=== PATIENT | male | born 1965 | race Caucasian/White ===

== ENCOUNTER 2020-12-03 23:21 | Emergency (ER) | payer OTHER ==
[~2020-12-03] VITALS: Ht 180.3 cm; Wt 140.2 kg
[2020-12-04 02:15] LABS: BASO # 0.1 10*3/uL (0.0-0.1); BASO % 0.4 % (0.0-1.0); EOS # 0.2 10*3/uL (0.0-0.4); EOS % 1.2 % (1.0-4.0); LYMPH # 1.7 10*3/uL (1.3-4.4); LYMPH % 11.9 % (27.0-41.0); MEAN CELL VOLUME 88.1 fl (80.0-94.0); MEAN CORPUSCULAR HGB 30.6 pg (27.0-31.0); MEAN CORPUSCULAR HGB CONC 34.7 g/dl (33.0-37.0); MEAN PLATELET VOLUME 10.8 fl (9.6-12.3); MONO # 1.4 10*3/uL (0.1-1.0); MONO % 9.7 % (3.0-9.0); NEUT # 10.8 10*3/uL (2.3-7.9); NEUT % 76.4 % (47.0-73.0); PLATELET COUNT AUTOMATED 247 10*3/uL (130-400); RED BLOOD COUNT 5.56 10*6/uL (4.50-5.90); RED CELL DISTRI WIDTH 13.1 % (0-14.5); WHITE BLOOD COUNT 14.2 10*3/uL (4.8-10.8)
[2020-12-04 02:32] LABS: ALBUMIN 3.5 gm/dl (3.1-4.5); ALKALINE PHOSPHATASE 95 U/L (45-117); BUN 14 mg/dl (7-24); CHLORIDE 106 mmol/L (98-107); CREATININE 1.17 mg/dL (0.70-1.30); LIPASE 72 U/L (73-393); POTASSIUM 3.8 mmol/L (3.5-5.1); SGOT/AST 18 IU/L (3-35); SGPT/ALT 33 U/L (12-78); SODIUM 137 mmol/L (136-145); TOTAL PROTEIN 7.4 gm/dL (6.4-8.2)
[2020-12-04 03:14] LABS: BILIRUBIN Negative (Negative); BLOOD Negative (Negative); CLARITY Clear (Clear); COLOR Yellow (Yellow); GLUCOSE Negative (Negative); KETONE Negative (Negative); LEUKO ESTERASE 1+ (Negative); NITRITE Negative (Negative); PH 5.5 (4.5-8.0); SPECIFIC GRAVITY 1.015 (1.001-1.030); UROBILINOGEN 0.2 E.U./dl (0.0-1.0)
[2020-12-04] MEDS ORDERED: HYDROCODONE-AC1 EAC1 PO (04:54)
[2020-12-04] MEDS ORDERED: CIPRO500 MG PO (04:54)
[2020-12-04] MEDS ORDERED: COLACE100 MG PO (04:54)
[2020-12-04] MEDS ORDERED: METRONIDAZOLE500 M1 PO (04:54)
== END 2020-12-04 05:34 | disposition home or self-care (01) ==
LOC: ED 23:21
PROVIDERS: Emergency Medicine
DX: K57.32 Diverticulitis of large intestine without perforation or abscess without bleeding (principal); Z88.1 Allergy status to other antibiotic agents

== ENCOUNTER 2022-01-26 09:32 | Emergency (ER) | payer OTHER ==
[~2022-01-26] VITALS: Wt 136.5 kg
[~2022-01-26 09:32] MED LIST: CIPRO500 MG PO; COLACE100 MG PO; HYDROCODONE-AC1 EAC1 PO; METRONIDAZOLE500 M1 PO
[2022-01-26 10:26] LABS: BASO # 0.1 10*3/uL (0.0-0.1); BASO % 0.6 % (0.0-1.0); EOS # 0.3 10*3/uL (0.0-0.4); EOS % 1.8 % (1.0-4.0); LYMPH # 2.2 10*3/uL (1.3-4.4); LYMPH % 15.6 % (27.0-41.0); MEAN CELL VOLUME 88.1 fl (80.0-94.0); MEAN CORPUSCULAR HGB 30.8 pg (27.0-31.0); MEAN PLATELET VOLUME 10.7 fl (9.6-12.3); MONO # 1.4 10*3/uL (0.1-1.0); NEUT # 9.9 10*3/uL (2.3-7.9); NEUT % 71.4 % (47.0-73.0); PLATELET COUNT AUTOMATED 341 10*3/uL (130-400); RED BLOOD COUNT 6.13 10*6/uL (4.50-5.90); RED CELL DISTRI WIDTH 12.8 % (0-14.5); WHITE BLOOD COUNT 13.8 10*3/uL (4.8-10.8)
[2022-01-26 10:44] LABS: ALKALINE PHOSPHATASE 110 U/L (45-117); BUN 17 mg/dl (7-24); CHLORIDE 110 mmol/L (98-107); CREATININE 1.28 mg/dL (0.70-1.30); LIPASE 118 U/L (73-393); POTASSIUM 3.8 mmol/L (3.5-5.1); SGOT/AST 21 IU/L (3-35); SGPT/ALT 30 U/L (12-78); SODIUM 139 mmol/L (136-145); TOTAL PROTEIN 8.1 gm/dL (6.4-8.2)
[2022-01-26] MEDS ORDERED: CIPRO500 MG PO (11:31)
[2022-01-26] MEDS ORDERED: METRONIDAZOLE500 M1 PO (11:31)
== END 2022-01-26 11:44 | disposition home or self-care (01) ==
LOC: ED 09:32
PROVIDERS: Family Medicine
DX: K57.32 Diverticulitis of large intestine without perforation or abscess without bleeding (principal); Z88.1 Allergy status to other antibiotic agents

== ENCOUNTER 2023-04-30 19:36 | Emergency (ER) | payer OTHER ==
[~2023-04-30] VITALS: Ht 182.8 cm; Wt 140.6 kg
== END 2023-04-30 21:57 | disposition home or self-care (01) ==
LOC: ED
DX: M25.561 Pain in right knee (principal); I10 Essential (primary) hypertension; Z88.1 Allergy status to other antibiotic agents

== ENCOUNTER 2023-10-22 10:28 | Emergency (ER) | payer OTHER ==
[~2023-10-22] VITALS: Ht 182.8 cm; Wt 140.6 kg
[2023-10-22] MEDS ORDERED: SODIUM CHLORIDE 0.9% 1,000 ML IV ONE (11:15)
[2023-10-22] MEDS ORDERED: Ondansetron Hydrochloride 4 MG/2 ML VIAL IV ONE (11:15)
[2023-10-22] MEDS ORDERED: MORPHINE Sulfate 2 MG/ML SYR IV ONE (11:15)
[2023-10-22] MEDS ORDERED: IOHEXOL 300 MG/ML 100 ML VIAL IV ONE (11:20)
[2023-10-22 11:35] LABS: BASO % 0.3 % (0.0-1.0); EOS # 0.2 10*3/uL (0.0-0.4); EOS % 1.9 % (1.0-4.0); HEMATOCRIT 51.2 % (42.0-52.0); LYMPH # 1.2 10*3/uL (1.3-4.4); LYMPH % 9.7 % (27.0-41.0); MEAN CELL VOLUME 89.4 fl (80.0-94.0); MEAN CORPUSCULAR HGB 30.9 pg (27.0-31.0); MEAN CORPUSCULAR HGB CONC 34.6 g/dl (33.0-37.0); MONO % 8.2 % (3.0-9.0); NEUT # 9.7 10*3/uL (2.3-7.9); NEUT % 79.3 % (47.0-73.0); PLATELET COUNT AUTOMATED 277 10*3/uL (130-400); RED BLOOD COUNT 5.73 10*6/uL (4.50-5.90); RED CELL DISTRI WIDTH 12.2 % (0-14.5); WHITE BLOOD COUNT 12.3 10*3/uL (4.8-10.8)
[2023-10-22 11:41] LABS: BILIRUBIN Negative (Negative); BLOOD Negative (Negative); CLARITY Clear (Clear); COLOR Yellow (Yellow); GLUCOSE Negative (Negative); KETONE Negative (Negative); LEUKO ESTERASE Trace (Negative); NITRITE Negative (Negative); PH 5.5 (4.5-8.0); SPECIFIC GRAVITY 1.015 (1.001-1.030); UROBILINOGEN 0.2 E.U./dl (0.0-1.0)
[2023-10-22 11:51] LABS: ALKALINE PHOSPHATASE 101 U/L (46-116); BUN 15 mg/dl (9-23); CHLORIDE 105 mmol/L (98-107); LIPASE 40 U/L (12-53); POTASSIUM 4.4 mmol/L (3.4-5.1); SGPT/ALT 18 U/L (5-49)
[2023-10-22 12:17] LABS: BACTERIA TRACE; MUCOUS TRACE
[2023-10-22] MEDS ORDERED: METRONIDAZOLE 500 MG TAB PO ONE (13:45)
[2023-10-22] MEDS ORDERED: Ciprofloxacin Hydrochloride 500 MG TAB PO ONE (13:45)
[2023-10-22] MEDS ORDERED: HYDROCODONE-AC1 EAC1 PO (13:49)
[2023-10-22] MEDS ORDERED: METRONIDAZOLE500 M1 PO (13:49)
[2023-10-22] MEDS ORDERED: CIPRO500 MG PO (13:49)
[2023-10-22] MEDS ORDERED: COLACE 2-IN-11 EACH PO (13:49)
== END 2023-10-22 13:57 | disposition home or self-care (01) ==
LOC: ED 10:28
PROVIDERS: Emergency Medicine
DX: K57.32 Diverticulitis of large intestine without perforation or abscess without bleeding (principal); I10 Essential (primary) hypertension; E78.5 Hyperlipidemia, unspecified; Z88.1 Allergy status to other antibiotic agents

== ENCOUNTER 2023-10-27 17:52 | Emergency (ER) | payer OTHER ==
[~2023-10-27] VITALS: Ht 182.8 cm; Wt 140.6 kg
[~2023-10-27 17:52] MED LIST changes: +COLACE 2-IN-11 EACH PO
[2023-10-27] MEDS ORDERED: Ondansetron Hydrochloride 4 MG/2 ML VIAL IV ONE (19:05)
[2023-10-27] MEDS ORDERED: SODIUM CHLORIDE 0.9% 1,000 ML IV ONE (19:05)
[2023-10-27 19:21] LABS: BASO % 0.4 % (0.0-1.0); EOS # 0.2 10*3/uL (0.0-0.4); EOS % 2.1 % (1.0-4.0); HEMATOCRIT 51.4 % (42.0-52.0); LYMPH # 1.5 10*3/uL (1.3-4.4); MEAN CELL VOLUME 88.9 fl (80.0-94.0); MEAN CORPUSCULAR HGB 30.8 pg (27.0-31.0); MEAN CORPUSCULAR HGB CONC 34.6 g/dl (33.0-37.0); MEAN PLATELET VOLUME 9.8 fl (9.6-12.3); MONO # 1.1 10*3/uL (0.1-1.0); MONO % 10.7 % (3.0-9.0); NEUT # 7.6 10*3/uL (2.3-7.9); NEUT % 72.2 % (47.0-73.0); PLATELET COUNT AUTOMATED 312 10*3/uL (130-400); RED BLOOD COUNT 5.78 10*6/uL (4.50-5.90); RED CELL DISTRI WIDTH 12.3 % (0-14.5); WHITE BLOOD COUNT 10.6 10*3/uL (4.8-10.8)
[2023-10-27 19:41] LABS: ALKALINE PHOSPHATASE 82 U/L (46-116); BUN 13 mg/dl (9-23); CHLORIDE 106 mmol/L (98-107); LIPASE 33 U/L (12-53); POTASSIUM 4.2 mmol/L (3.4-5.1); SGPT/ALT 43 U/L (5-49); TOTAL PROTEIN 7.1 gm/dL (6.0-8.0)
[2023-10-27] MEDS ORDERED: IOHEXOL 300 MG/ML 100 ML VIAL IV ONE (19:55)
[2023-10-27] MEDS ORDERED: MG-AL HYDROXIDE/SIMETICONE 30 ML UDC PO STA (21:43)
[2023-10-27] MEDS ORDERED: Dicyclomine Hydrochloride 20 MG/10 ML OSYR PO STA (21:43)
[2023-10-27] MEDS ORDERED: Lidocaine Hydrochloride 15 ML UDC PO STA (21:43)
[2023-10-27] MEDS ORDERED: PEPCID20 MG PO (21:45)
[2023-10-27] MEDS ORDERED: ONDANSETRON4 MG SL (21:45)
== END 2023-10-27 23:18 | disposition home or self-care (01) ==
LOC: ED 17:52
PROVIDERS: Nurse Practitioner Family
DX: K57.32 Diverticulitis of large intestine without perforation or abscess without bleeding (principal); K21.9 Gastro-esophageal reflux disease without esophagitis; R11.0 Nausea; I10 Essential (primary) hypertension; Z88.1 Allergy status to other antibiotic agents

== ENCOUNTER → 2024-01-09 | Day surgery (SDC) | payer OTHER ==
[~2024-01-09] VITALS: Ht 182.8 cm; Wt 140.6 kg
[~2024-01-09] MED LIST changes: +Ketamine Hydrochloride 500 MG/10 ML VIAL IV ONE; +LOSARTAN POTAS100 M1 PO; +Lactated Ringer's Solution 1,000 ML IV ONE; +Lidocaine Hydrochloride 2% 5 ML SDV IV ONE; +ONDANSETRON4 MG SL; +PEPCID20 MG PO; +PROPOFOL 200 MG/20 ML VIAL IV ONE; +ZOLPIDEM10 MG PO
[2024-01-09 07:35] VITALS: BP 129/72
[2024-01-09 08:53] VITALS: BP 128/83
[2024-01-09 09:08] VITALS: BP 122/89
[2024-01-09 09:23] VITALS: BP 146/81
== END | disposition home or self-care (01) ==
LOC: SDC 01-05 08:00
PROVIDERS: ATTEND Surgery
DX: K57.32 Diverticulitis of large intestine without perforation or abscess without bleeding (principal); K57.30 Diverticulosis of large intestine without perforation or abscess without bleeding; K64.8 Other hemorrhoids; K21.9 Gastro-esophageal reflux disease without esophagitis; I10 Essential (primary) hypertension; G47.33 Obstructive sleep apnea (adult) (pediatric); Z98.890 Other specified postprocedural states; Z79.899 Other long term (current) drug therapy; Z88.1 Allergy status to other antibiotic agents; Z79.891 Long term (current) use of opiate analgesic

== ENCOUNTER 2024-04-16 04:15 | Observation (INO) | payer OTHER ==
[~2024-04-16] VITALS: Ht 182.8 cm; Wt 154.2 kg
[~2024-04-16 04:15] MED LIST changes: -Ketamine Hydrochloride 500 MG/10 ML VIAL IV ONE; -Lactated Ringer's Solution 1,000 ML IV ONE; -Lidocaine Hydrochloride 2% 5 ML SDV IV ONE; -PROPOFOL 200 MG/20 ML VIAL IV ONE
[2024-04-16 04:28] VITALS: BP 147/74
[2024-04-16 06:05] LABS: BASO % 0.5 % (0.0-1.0); EOS # 0.4 10*3/uL (0.0-0.4); EOS % 4.8 % (1.0-4.0); MEAN CELL VOLUME 90.3 fl (80.0-94.0); MEAN CORPUSCULAR HGB 30.9 pg (27.0-31.0); MEAN CORPUSCULAR HGB CONC 34.2 g/dl (33.0-37.0); MEAN PLATELET VOLUME 10.6 fl (9.6-12.3); MONO # 0.5 10*3/uL (0.1-1.0); MONO % 7.2 % (3.0-9.0); NEUT # 4.5 10*3/uL (2.3-7.9); NEUT % 60.2 % (47.0-73.0); PLATELET COUNT AUTOMATED 294 10*3/uL (130-400); RED BLOOD COUNT 5.76 10*6/uL (4.50-5.90); RED CELL DISTRI WIDTH 13.3 % (0-14.5); WHITE BLOOD COUNT 7.5 10*3/uL (4.8-10.8)
[2024-04-16 06:07] LABS: BUN 22 mg/dl (9-23); CHLORIDE 109 mmol/L (98-107); POTASSIUM 4.1 mmol/L (3.4-5.1)
[2024-04-16] MEDS ORDERED: Vancomycin Hydrochloride 250 ML IV ONE (06:15)
[2024-04-16] MEDS ORDERED: Piperacillin Sodium/Tazobact 50 ML IV ONE (06:15)
[2024-04-16] MEDS ORDERED: Magnesium Hydroxide 30 ML UDC PO PRN (06:30)
[2024-04-16] MEDS ORDERED: TEMAZEPAM 15 MG CAP PO PRN (06:30)
[2024-04-16] MEDS ORDERED: Ondansetron Hydrochloride 4 MG/2 ML VIAL IV PRN (06:30)
[2024-04-16] MEDS ORDERED: MORPHINE Sulfate 2 MG/ML SYR IV PRN (06:30)
[2024-04-16] MEDS ORDERED: BISACODYL 10 MG SUPP R PRN (06:30)
[2024-04-16] MEDS ORDERED: Acetaminophen/Hydrocodone 5 MG/325 MG TABLET PO PRN (06:30)
[2024-04-16] MEDS ORDERED: BISACODYL 5 MG TAB PO PRN (06:30)
[2024-04-16] MEDS ORDERED: Vancomycin Hydrochloride 1,000 MG in SODIUM CHLORIDE 0.9% 250 ML IV SCH (06:35)
[2024-04-16] MEDS ORDERED: Valacyclovir Hydrochloride 500 MG CAP PO SCH (09:05)
[2024-04-16] MEDS ORDERED: Enoxaparin Sodium 40 MG/0.4 ML SYR SC SCH (10:00)
[2024-04-16 11:17] VITALS: BP 125/73
[2024-04-16] MEDS ORDERED: Piperacillin Sodium/Tazobact 50 ML IV SCH (12:00)
[2024-04-16] MEDS ORDERED: VALACYCLOVIR500 M1 PO (13:07)
[2024-04-16] MEDS ORDERED: BENADRYL25 M2 PO (13:07)
[2024-04-16] MEDS ORDERED: KENALOG 0.1%80 GM T (13:07)
[2024-04-16] MEDS ORDERED: VANCOMYCIN/WATER FOR INJ (PEG) 300 ML IV SCH (14:00)
[2024-04-17] MEDS ORDERED: Pantoprazole Sodium 40 MG TAB PO SCH (06:00)
== END 2024-04-16 13:13 | disposition home or self-care (01) ==
LOC: ED 04:15 → EDHOLD 06:20
PROVIDERS: Internal Medicine; ADMIT Family Medicine; ATTEND Family Medicine
DX: R21 Rash and other nonspecific skin eruption (principal); I10 Essential (primary) hypertension; E78.5 Hyperlipidemia, unspecified; G47.00 Insomnia, unspecified; Z79.899 Other long term (current) drug therapy

== ENCOUNTER 2024-08-15 23:15 | Inpatient (IN) | payer OTHER ==
[~2024-08-15] VITALS: Ht 177.8 cm; Wt 153.3 kg
[~2024-08-15 23:15] MED LIST changes: +BENADRYL25 M2 PO; +KENALOG 0.1%80 GM T; +VALACYCLOVIR500 M1 PO
[2024-08-15 23:36] VITALS: BP 153/103
[2024-08-15 23:56] LABS: BASO % 0.3 % (0.0-1.0); EOS % 0.3 % (1.0-4.0); HEMATOCRIT 56.9 % (42.0-52.0); MEAN CELL VOLUME 87.9 fl (80.0-94.0); MEAN CORPUSCULAR HGB 29.2 pg (27.0-31.0); MEAN CORPUSCULAR HGB CONC 33.2 g/dl (33.0-37.0); MEAN PLATELET VOLUME 9.6 fl (9.6-12.3); MONO # 0.7 10*3/uL (0.1-1.0); MONO % 5.7 % (3.0-9.0); NEUT # 10.5 10*3/uL (2.3-7.9); NEUT % 85.9 % (47.0-73.0); PLATELET COUNT AUTOMATED 311 10*3/uL (130-400); RED BLOOD COUNT 6.47 10*6/uL (4.50-5.90); WHITE BLOOD COUNT 12.2 10*3/uL (4.8-10.8)
[2024-08-16 00:18] LABS: ALKALINE PHOSPHATASE 83 U/L (46-116); BUN 19 mg/dl (9-23); CHLORIDE 106 mmol/L (98-107); LIPASE 37 U/L (12-53); POTASSIUM 4.2 mmol/L (3.4-5.1); SGPT/ALT 75 U/L (5-49); TOTAL PROTEIN 7.8 gm/dL (6.0-8.0)
[2024-08-16] MEDS ORDERED: SODIUM CHLORIDE 0.9% 1,000 ML IV ONE ×3 (00:55→12:00)
[2024-08-16] MEDS ORDERED: HYDROmorphONE Hydrochloride 0.5 MG/0.5 ML SYRINGE IV ONE (01:05)
[2024-08-16] MEDS ORDERED: diazePAM 10 MG/2 ML SYR IV ONE (01:05)
[2024-08-16] MEDS ORDERED: Ondansetron Hydrochloride 4 MG/2 ML VIAL IV ONE (01:05)
[2024-08-16] MEDS ORDERED: ACETAMINOPHEN 325 MG TAB PO PRN (02:15)
[2024-08-16] MEDS ORDERED: Ondansetron Hydrochloride 4 MG/2 ML VIAL IV PRN (02:15)
[2024-08-16] MEDS ORDERED: HYDROmorphONE Hydrochloride 0.5 MG/0.5 ML SYRINGE IV PRN (02:20)
[2024-08-16] MEDS ORDERED: PRAMIPEXOLE DIHY1 MG PO (03:37)
[2024-08-16 04:20] VITALS: BP 153/94
[2024-08-16 06:21] LABS: BASO % 0.3 % (0.0-1.0); EOS % 0.3 % (1.0-4.0); HEMATOCRIT 52.9 % (42.0-52.0); MEAN CELL VOLUME 85.2 fl (80.0-94.0); MEAN CORPUSCULAR HGB 30.1 pg (27.0-31.0); MEAN CORPUSCULAR HGB CONC 35.3 g/dl (33.0-37.0); MEAN PLATELET VOLUME 10.4 fl (9.6-12.3); MONO # 1.2 10*3/uL (0.1-1.0); MONO % 10.8 % (3.0-9.0); NEUT # 8.6 10*3/uL (2.3-7.9); NEUT % 77.1 % (47.0-73.0); PLATELET COUNT AUTOMATED 314 10*3/uL (130-400); RED BLOOD COUNT 6.21 10*6/uL (4.50-5.90); RED CELL DISTRI WIDTH 13.2 % (0-14.5); WHITE BLOOD COUNT 11.2 10*3/uL (4.8-10.8)
[2024-08-16 06:40] LABS: ALKALINE PHOSPHATASE 78 U/L (46-116); BUN 18 mg/dl (9-23); CHLORIDE 107 mmol/L (98-107); SGPT/ALT 65 U/L (5-49); TOTAL PROTEIN 7.1 gm/dL (6.0-8.0)
[2024-08-16 08:00] VITALS: BP 155/84
[2024-08-16] MEDS ORDERED: IOHEXOL 300 MG/ML 100 ML VIAL IV ONE (09:40)
[2024-08-16] MEDS ORDERED: BARIUM SULFATE 2% 450 ML BOT PO SCH (10:00)
[2024-08-16] MEDS ORDERED: Losartan Potassium 50 MG TAB PO SCH ×2 (10:00→22:00)
[2024-08-16] MEDS ORDERED: ZOLPIDEM TARTRATE 10 MG TAB PO SCH ×2 (10:00→22:00)
[2024-08-16 11:49] LABS: BILIRUBIN Negative (Negative); BLOOD Negative (Negative); CLARITY Clear (Clear); COLOR Yellow (Yellow); GLUCOSE Negative (Negative); KETONE Negative (Negative); LEUKO ESTERASE Negative (Negative); NITRITE Negative (Negative); SPECIFIC GRAVITY 1.025 (1.001-1.030); UROBILINOGEN 0.2 E.U./dl (0.0-1.0)
[2024-08-16 12:00] VITALS: BP 141/84
[2024-08-16 12:03] LABS: MUCOUS TRACE
[2024-08-16 16:00] VITALS: BP 136/76
[2024-08-16 20:00] VITALS: BP 145/84
[2024-08-16] MEDS ORDERED: Pramipexole Dihydrochloride 0.5 MG TAB PO SCH (22:00)
[2024-08-16] MEDS ORDERED: CALCIUM (TUMS) 500MG PO ONE (22:55)
[2024-08-17] VITALS: BP 131/69
[2024-08-17 06:39] LABS: ALKALINE PHOSPHATASE 65 U/L (46-116); BUN 13 mg/dl (9-23); CHLORIDE 106 mmol/L (98-107); SGPT/ALT 45 U/L (5-49); TOTAL PROTEIN 6.4 gm/dL (6.0-8.0)
[2024-08-17 06:58] LABS: BASO % 0.4 % (0.0-1.0); EOS # 0.5 10*3/uL (0.0-0.4); HEMATOCRIT 50.5 % (42.0-52.0); MEAN CELL VOLUME 87.1 fl (80.0-94.0); MEAN CORPUSCULAR HGB 29.7 pg (27.0-31.0); MEAN CORPUSCULAR HGB CONC 34.1 g/dl (33.0-37.0); MEAN PLATELET VOLUME 10.3 fl (9.6-12.3); MONO # 0.9 10*3/uL (0.1-1.0); NEUT # 4.3 10*3/uL (2.3-7.9); NEUT % 55.1 % (47.0-73.0); PLATELET COUNT AUTOMATED 283 10*3/uL (130-400); RED CELL DISTRI WIDTH 13.2 % (0-14.5); WHITE BLOOD COUNT 7.7 10*3/uL (4.8-10.8)
[2024-08-17 08:00] VITALS: BP 146/81
[2024-08-17 12:00] VITALS: BP 136/80
== END 2024-08-17 16:27 | disposition home or self-care (01) | DRG 389 ==
LOC: ED 23:15 → 4E 08-16 01:11 → EDHOLD 08-16 01:11 → 4E 08-16 03:15
PROVIDERS: Internal Medicine; Student in an Organized Health Care Education/Training Program; ADMIT Internal Medicine; ATTEND Internal Medicine
PROC: 0D9670Z Drainage of Stomach with Drainage Device, Via Natural or Artificial Opening (ICD-10-PCS; principal; 2024-08-16)
DX: K56.609 Unspecified intestinal obstruction, unspecified as to partial versus complete obstruction (principal); R65.10 Systemic inflammatory response syndrome (SIRS) of non-infectious origin without acute organ dysfunction; K64.8 Other hemorrhoids; K57.30 Diverticulosis of large intestine without perforation or abscess without bleeding; D72.829 Elevated white blood cell count, unspecified; I10 Essential (primary) hypertension; K21.9 Gastro-esophageal reflux disease without esophagitis; F51.05 Insomnia due to other mental disorder; G25.81 Restless legs syndrome; K31.84 Gastroparesis; K56.7 Ileus, unspecified; R74.01 Elevation of levels of liver transaminase levels; R73.9 Hyperglycemia, unspecified; D75.1 Secondary polycythemia; Z88.1 Allergy status to other antibiotic agents; Z79.899 Other long term (current) drug therapy; Z79.01 Long term (current) use of anticoagulants; Z79.2 Long term (current) use of antibiotics; Z80.8 Family history of malignant neoplasm of other organs or systems; Z82.61 Family history of arthritis; Z82.49 Family history of ischemic heart disease and other diseases of the circulatory system; Z86.19 Personal history of other infectious and parasitic diseases; Z87.19 Personal history of other diseases of the digestive system; Z78.9 Other specified health status

== ENCOUNTER 2025-03-19 17:41 | Emergency (ER) | payer OTHER ==
[~2025-03-19] VITALS: Ht 182.8 cm; Wt 149.7 kg
[~2025-03-19 17:41] MED LIST changes: +PRAMIPEXOLE DIHY1 MG PO
[2025-03-19 18:29] LABS: BASO # 0.1 10*3/uL (0.0-0.1); BASO % 0.6 % (0.0-1.0); EOS # 0.4 10*3/uL (0.0-0.4); EOS % 3.6 % (1.0-4.0); MEAN CELL VOLUME 92.1 fl (80.0-94.0); MEAN CORPUSCULAR HGB 32.1 pg (27.0-31.0); MEAN PLATELET VOLUME 9.5 fl (9.6-12.3); MONO # 1.0 10*3/uL (0.1-1.0); MONO % 9.4 % (3.0-9.0); NEUT # 7.1 10*3/uL (2.3-7.9); NEUT % 67.6 % (47.0-73.0); NUCLEATED RED BLOOD CELL 0.0 % (0.0-0.0); NUCLEATED RED BLOOD CELL 0.0 10*3/uL (0.0-0.0); PLATELET COUNT AUTOMATED 304 10*3/uL (130-400); RED CELL DISTRI WIDTH 13.5 % (0-14.5)
[2025-03-19 19:12] LABS: BILIRUBIN Negative (Negative); BLOOD Negative (Negative); CLARITY Clear (Clear); COLOR Yellow (Yellow); KETONE Negative (Negative); LEUKO ESTERASE 1+ (Negative); NITRITE Negative (Negative); PH 5.5 (4.5-8.0); SPECIFIC GRAVITY >= 1.030 (1.001-1.030); UROBILINOGEN 0.2 E.U./dl (0.0-1.0)
[2025-03-19 19:14] LABS: BUN 22 mg/dl (9-23)
[2025-03-19 19:25] LABS: BACTERIA 1+; MUCOUS 2+; RBC 0-2 rbc/hpf (0-2)
[2025-03-19] MEDS ORDERED: CIPRO500 MG PO (20:34)
[2025-03-19] MEDS ORDERED: Ciprofloxacin Hydrochloride 500 MG TAB PO ONE (20:35)
== END 2025-03-19 20:47 | disposition home or self-care (01) ==
LOC: ED 17:41
PROVIDERS: Nurse Practitioner Family
DX: R19.7 Diarrhea, unspecified (principal); N39.0 Urinary tract infection, site not specified; R10.9 Unspecified abdominal pain; F41.9 Anxiety disorder, unspecified; I10 Essential (primary) hypertension; G47.00 Insomnia, unspecified; Z98.890 Other specified postprocedural states; Z88.8 Allergy status to other drugs, medicaments and biological substances